=== PATIENT | male | born 1985 | race American Indian/Alaskan Native ===

== ENCOUNTER 2019-05-30 09:56 | Day surgery (SDC) | payer OTHER ==
[~2019-05-30 09:56] MED LIST: SODIUM CHLORIDE 0.9% 1000 ML 1,000 ML IV SCH
--- NOTE | 2019-05-30 10:40 | Anesthesia Consultation ---
Anesthesia Consult and Med Hx Date of service: 05/30/19 - Airway Anesthetic Teeth Evaluation: Good ROM Head & Neck: Adequate Mental/Hyoid Distance: Adequate Mallampati Class: Class II Intubation Access Assessment: Probably Good - Pre-Operative Health Status ASA Pre-Surgery Classification: ASA2 Proposed Anesthetic Plan: MAC - Cardiovascular System Hx Hypertension: Yes (diagnosed 2 years ago, no meds) - Gastrointestinal Hx Ulcer: Yes (R/O PUD) Hx Gastroesophageal Reflux Disease: Yes - Other Systems Hx Obesity: Yes (overweight)
--- NOTE | 2019-05-30 10:41 | Anesthesia Day of Surgery ---
Anesthesia Day of Surgery - Day of Surgery Patient Examined: Yes Patient H&P Reviewed: Yes Patient is NPO: Yes
[2019-05-30] MEDS ORDERED: propofoL 200 MG/20 ML VIAL IV ONE ×2 (11:42→11:48)
--- NOTE | 2019-05-30 12:00 | Procedure Note ---
Date of procedure: 05/30/19 Pre-op diagnosis: Dyspepsia/ R/O Peptic Ulcer disease/ H/O H.pylori gastritis (treated) Post-op diagnosis: other (Mild to Moderate Erosive Esophagitis/Gastritis/R/O Celiac Disease/ No Peptic, Ulcer disease noted) Procedure: EGD with biopsy Anesthesia: TROY Surgeon: CHEN DEGROOT Estimated blood loss: minimal Specimen disposition: to lab Condition: stable Disposition: same day (Treat with PPI, await for the biopsy reports. Resume home medication, but avoid aspirin and NSAID for 5 days. follow up in 1 to 2 weeks ([phone]).)
[2019-05-30 12:38] VITALS: BP 142/92
[2019-05-30] MEDS ORDERED: SODIUM CHLORIDE 0.9% 1000 ML 1,000 ML ONE (13:41)
[2019-05-30] MEDS ORDERED: LIDOCAINE MPF (2%) 20 MG/1 ML VIAL 5 ML ONE (14:00)
--- NOTE | 2019-05-30 14:20 | Operative Report ---
PROCEDURE: EGD with biopsy. INDICATIONS: A 33-year-old -[place] gentleman with a history of H. pylori gastritis that has been having persistence of dyspeptic symptoms in spite of being treated for the H. pylori. EGD was done to rule out for any associated peptic ulcer disease. DESCRIPTION OF PROCEDURE: Procedure was done after getting informed consent with MAC anesthesia. Instrument was passed through the hypopharynx into the esophagus which showed [id number] distal erosive esophagitis. Biopsy was done from the distal esophagus. Stomach showed antral gastritis. Biopsy was done from the gastric antrum, gastric body, and angular incisura to rule out for any persistence of H. pylori gastritis. The pylorus was patent. The duodenum in the first and the second portion appeared normal. Biopsy was done from the second part to rule out for possible celiac disease. No peptic ulcer disease was noted within the gastric or the duodenal lumen. There was minimal bleeding associated with the procedure. No complications associated with the procedure. ASSESSMENT: Dyspepsia, history of H. pylori gastritis for which the patient has been treated, rule out peptic ulcer disease, no peptic ulcer disease noted, [id number] erosive esophagitis, gastritis, rule out celiac disease. PLAN: To treat the patient with PPI, probably also to treat the patient with Celexa if the patient has no improvement with the PPI and possibly baclofen as well. Avoid aspirin and aspirin-related products for the next few days. Follow up in the office in 1-2 weeks' time. Procedure was done in the GI Lab with the assistance of the GI Lab Team which included Dianna PRADO, as well as Miguel acuña, and with the assistance of anesthesia. JOB# [id number] CARTER/PERCY
--- NOTE | 2019-05-30 14:39 | Post Anesthesia Evaluation ---
- Post Anesthesia Evaluation Patient Participated: Yes Airway Patent: Yes Stable Respiratory Function: Yes Nausea/Vomiting: No Temp > 96.8F: Yes Pain Manageable: Yes Adequeate Hydration: Yes Anesthesia Complications: No
== END 2019-05-30 12:38 | disposition home or self-care (01) ==
LOC: GIO 09:56
DX: K29.50 Unspecified chronic gastritis without bleeding (principal); R10.13 Epigastric pain; K21.0 Gastro-esophageal reflux disease with esophagitis; K31.89 Other diseases of stomach and duodenum; I10 Essential (primary) hypertension; E66.9 Obesity, unspecified; Z68.30 Body mass index [BMI] 30.0-30.9, adult; Z79.899 Other long term (current) drug therapy
CPT/HCPCS: 43239; 88305; 88342; J2704; J7030